=== PATIENT | male | born 1935 | race Caucasian/White ===

== ENCOUNTER 2021-09-03 14:02 | Emergency (ER) | payer OTHER ==
[2021-09-03] MEDS ORDERED: Ringers Lactate 1,000 ML IV ONE (16:11)
[2021-09-03 16:19] LABS: Urine Blood Negative (Negative); Urine Glucose Negative (Negative); Urine Protein 1+ (Negative); Urine Specific Gravity 1.015 (1.005-1.030)
[2021-09-03 16:26] LABS: Basophils % 0.7 % (0-1.3); Lymphocytes % 20.5 % (15.3-44.8); MPV 7.3 fL (7.6-11.3); RBC Red Blood Cell Count 4.25 M/uL (4.33-5.43)
[2021-09-03 16:39] LABS: Bilirubin Direct 0.2 mg/dL (0-0.2); Bilirubin Total 0.6 mg/dL (0.2-1.0); Potassium 4.4 mmol/L (3.5-5.1); Protein, Total 7.2 g/dL (6.4-8.2)
--- NOTE | 2021-09-03 17:41 | ER ---
Nurse's Notes [facility] Name: Bob Mishra Age: 86 yrs Sex: Male : 1935 Arrival Date: 09/03/2021 Time: 14:04 Bed 26 Private MD: Diagnosis: Dehydration Presentation: 09/03 14:33 Chief complaint: Patient states: n/v/d starting 2days ago states that he has had 2 6 episodes of vomiting and 2 episodes of Diarrhea in the last 24hrs. generalized weakness. Coronavirus screen: Vaccine status:. Ebola Screen: No symptoms or risks identified at this time. Initial Sepsis Screen: Does the patient meet any 2 criteria? No. Patient's initial sepsis screen is negative. Does the patient have a suspected source of infection? No. Patient's initial sepsis screen is negative. Risk Assessment: Do you want to hurt yourself or someone else? Patient reports no desire to harm self or others. Onset of symptoms was September 01, 2021. 14:33 Method Of Arrival: Ambulatory [facility] 14:33 Acuity: EMILY 2 [facility] 14:33 Acuity: EMILY 3 [facility] Triage Assessment: 14:40 General: Appears uncomfortable, ill, well groomed, well developed, Behavior is calm, jh6 cooperative. Pain: Complains of pain in right upper quadrant and left upper quadrant Pain currently is 3 out of 10 on a pain scale. Quality of pain is described as aching, crampy, Pain began 2-3 days ago. Is intermittent. GI: Bowel sounds present X 4 quads. hyperactive in right upper quadrant and left upper quadrant Reports upper abdominal pain, diarrhea, epigastric pain, intolerance of fluids, intolerance of food, nausea. Historical: - Allergies: 14:39 No Known Allergies; [facility] - Immunization history:: Adult Immunizations up to date, Client reports receiving the 2nd dose of the Covid vaccine. - Social history:: Smoking status: Patient denies any tobacco usage or history of. Screenin:05 Abuse screen: Denies threats or abuse. Denies injuries from another. Nutritional almanza screening: No deficits noted. Nutritional screening: Has had N/V for 3 or more days. Tuberculosis screening: No symptoms or risk factors identified. Fall Risk Gait- Weak (10 pts.). Assessment: 15:05 GI: Reports lower abdominal pain, diarrhea, nausea, vomiting, since x3 days. almanza 16:51 Reassessment: Patient appears in no apparent distress at this time. Patient and/or iw family updated on plan of care and expected duration. Pain level reassessed. Patient is alert, oriented x 3, equal unlabored respirations, skin warm/dry/pink. Vital Signs: 14:33 BP 134 / 66; Pulse 60; Resp 17; Temp 97.6; Pulse Ox 97% on R/A; Weight 83.91 kg; Height [facility] 5 ft. 11 in. (180.34 cm); Pain 2/10; 14:41 BP 134 / 64 Sitting; Pulse 60; Resp 18; jh6 14:41 BP 112 / 61 Standing; Pulse 74; Resp 18; jh6 15:06 BP 129 / 66; Pulse 57; Resp 16; Pulse Ox 98% ; almanza 14:33 Body Mass Index 25.80 (83.91 kg, 180.34 cm) [facility] ED Course: 14:04 Patient arrived in ED. as 14:39 Triage completed. [facility] 14:41 Arm band placed on left wrist. [facility] 15:00 Chago Sepulveda PA is PHCP. [facility] 15:00 Shant Mayes MD is Attending Physician. [facility] 15:05 Patient has correct armband on for positive identification. Placed in gown. Bed in low almanza position. Side rails up X 1. Adult w/ patient. 15:05 No provider procedures requiring assistance completed. [facility] 16:15 Courtney Mcclellan, RN is Primary Nurse. iw 16:19 Basic Metabolic Panel Sent. [facility] 16:19 CBC with Diff Sent. [facility] 16:19 Hepatic Function Sent. [facility]manza 16:19 Lipase Sent. almanza Administered Medications: 16:15 Drug: Ringers - Lactated Ringers Solution 1000 ml Route: IV; Rate: bolus; Site: left iw antecubital; Outcome: 17:40 Discharge ordered by . jr 17:49 Patient left the ED. iw Signatures: Naty Yu Irene, GLENROY TIM Chago Sepulveda PA PA [facility] Dominique Trujillo RN RN [facility]-StagerMaría
--- NOTE | 2021-09-03 17:41 | EDPHYS ---
Physician Documentation [facility] Name: Bob Mishra Age: 86 yrs Sex: Male : 1935 Arrival Date: 09/03/2021 Time: 14:04 Bed 26 Private MD: ED Physician Shant Mayes HPI: 09/03 16:58 This 86 yrs old Male presents to ER via Ambulatory with complaints of Vomiting/Diarrhea.jr8 16:58 The symptoms are aggravated by nothing. The symptoms are alleviated by nothing. jr8 Severity of symptoms: At their worst the symptoms were moderate in the emergency department the symptoms have improved. The patient has not experienced similar symptoms in the past. The patient has not recently seen a physician. This is a 86-year-old male patient that presented to the emergency room with few day history of nausea vomiting and diarrhea which since last night has subsided but still continues to feel generally weak. Denies any other symptoms at this time. Patient stated that he was able to keep and hold down Pedialyte this morning.. Historical: - Allergies: 14:39 No Known Allergies; jh6 - Immunization history:: Adult Immunizations up to date, Client reports receiving the 2nd dose of the Covid vaccine. - Social history:: Smoking status: Patient denies any tobacco usage or history of. ROS: 16:58 Eyes: Negative for injury, pain, redness, and discharge, ENT: Negative for injury, jr8 pain, and discharge, Neck: Negative for injury, pain, and swelling, Cardiovascular: Negative for chest pain, palpitations, and edema, Respiratory: Negative for shortness of breath, cough, wheezing, and pleuritic chest pain, Back: Negative for injury and pain, MS/Extremity: Negative for injury and deformity, Skin: Negative for injury, rash, and discoloration, Neuro: Negative for headache, weakness, numbness, tingling, and seizure. 16:58 Abdomen/GI: Positive for nausea, vomiting, and diarrhea, Negative for abdominal pain, hematemesis, black/tarry stool, rectal pain, rectal bleeding, bowel incontinence, flatulence. Exam: 16:58 Constitutional: This is a well developed, well nourished patient who is awake, alert, jr8 and in no acute distress. Cardiovascular: Regular rate and rhythm with a normal S1 and S2. No gallops, murmurs, or rubs. Normal PMI, no JVD. No pulse deficits. Respiratory: Lungs have equal breath sounds bilaterally, clear to auscultation and percussion. No rales, rhonchi or wheezes noted. No increased work of breathing, no retractions or nasal flaring. Abdomen/GI: Soft, non-tender, with normal bowel sounds. No distension or tympany. No guarding or rebound. No evidence of tenderness throughout. Back: No spinal tenderness. No costovertebral tenderness. Full range of motion. Skin: Warm, dry with normal turgor. Normal color with no rashes, no lesions, and no evidence of cellulitis. MS/ Extremity: Pulses equal, no cyanosis. Neurovascular intact. Full, normal range of motion. Neuro: Awake and alert, GCS 15, oriented to person, place, time, and situation. Motor strength 5/5 in all extremities. Sensory grossly intact. Vital Signs: 14:33 BP 134 / 66; Pulse 60; Resp 17; Temp 97.6; Pulse Ox 97% on R/A; Weight 83.91 kg; Height jh6 5 ft. 11 in. (180.34 cm); Pain 2/10; 14:41 BP 134 / 64 Sitting; Pulse 60; Resp 18; jh6 14:41 BP 112 / 61 Standing; Pulse 74; Resp 18; jh6 15:06 BP 129 / 66; Pulse 57; Resp 16; Pulse Ox 98% ; [facility]man[facility] 14:33 Body Mass Index 25.80 (83.91 kg, 180.34 cm) [facility] MDM: 15:03 Patient medically screened. rust 17:39 Data reviewed: vital signs, nurses notes, lab test result(s). Data interpreted: Pulse 8 oximetry: on room air is 98 %. Interpretation: normal. Counseling: I had a detailed discussion with the patient and/or guardian regarding: the historical points, exam findings, and any diagnostic results supporting the discharge/admit diagnosis, lab results, the need for outpatient follow up, a family practitioner, to return to the emergency department if symptoms worsen or persist or if there are any questions or concerns that arise at home. Response to treatment: the patient's symptoms have markedly improved after treatment, patient is well hydrated. 09/03 15:51 Order name: Basic Metabolic Panel; Complete Time: 17:00 8 09/03 15:51 Order name: CBC with Diff; Complete Time: 17:00 jr8 09/03 15:51 Order name: Hepatic Function; Complete Time: 17:00 jr8 09/03 15:51 Order name: Lipase; Complete Time: 17:00 jr8 09/03 16:19 Order name: Urine Dipstick-Ancillary EDMS 09/03 15:51 Order name: IV Saline Lock; Complete Time: 16:16 jr8 09/03 15:51 Order name: Labs collected and sent; Complete Time: 16:16 jr8 Administered Medications: 16:15 Drug: Ringers - Lactated Ringers Solution 1000 ml Route: IV; Rate: bolus; Site: left iw antecubital; Disposition: 18:59 Co-signature as Attending Physician, Shant Mayes MD I agree with the assessment and rn plan of care. Attestation: The patient's history, exam findings, diagnostics, and a summary of any interventions or procedures was reviewed in detail with Chago MCKENZIE. Disposition Summary: 09/03/21 17:40 Discharge Ordered Location: Home rust Problem: new jr8 Symptoms: have improved jr8 Condition: Stable jr8 Diagnosis - Dehydration jr8 Followup: jr8 - With: Private Physician - When: 2 - 3 days - Reason: Recheck today's complaints, Continuance of care, Re-evaluation by your physician Discharge Instructions: - Discharge Summary Sheet jr8 - Dehydration, Adult jr8 Forms: - Medication Reconciliation Form jr8 - Thank You Letter jr8 - Antibiotic Education jr8 - Prescription Opioid Use jr8 Signatures: Dispatcher [employer] EDHI Courtney Mcclellan RN RN iw Shant Mayes MD MD rn Roszak, Josh, PA PA jr8 Dominique Trujillo RN RN jh6
[2021-09-03 18:21] VITALS: TEMP 97.6
[2021-09-03 18:24] VITALS: BP 129/66; O2SAT 98
== END 2021-09-03 17:49 | disposition home or self-care (01) ==
LOC: ER 14:02
DX: E86.0 Dehydration (principal)
CPT/HCPCS: 85025; 80048; 36415; 80076; 81003; 83690; 96374; 99283; J7120